=== PATIENT | female | born 1945 | race Caucasian/White ===

== ENCOUNTER 2020-03-10 20:48 | Emergency (ER) | payer MEDICARE, OTHER ==
[~2020-03-10] VITALS: Ht 160 cm; Wt 89.8 kg
--- NOTE | 2020-03-10 21:18 | NUR ---
TD GIVEN TO L-DELT. AKILAH, LOT [id number], EXP 02/26/22
[2020-03-10] MEDS ORDERED: TETANUS/DIPHTHERIA TOX ADULT 0.5 ML SYR ONE (21:19)
--- NOTE | 2020-03-10 21:21 | Emergency Department Note ---
History of Present Illnes History of Present Illness Chief Complaint: Laceration History of Present Illness This is a 74 year old female c cc laceration left index finger while s [facility] . Historian: Patient Onset (how long ago): hour(s) (1) Location: left index Quality: sharp Radiation: non-radiation Severity: moderate Onset quality: sudden Duration (how long): hour(s) (1) Timing of current episode: constant Progression: unchanged Chronicity: new Context: recent illness, recent surgery, recent immobilization, recent travel, trauma/injury, new medications, hx of DVT/PE, non-compliance w/ medications, other Relieving factors: none Exacerbating factors: none Associated symptoms: denies other symptoms Treatments prior to arrival: none Past Medical/Family History Physician Review I have reviewed the patient's past medical and family history. Any updates have been documented here. Past Medical History Past Medical History: Hypertension Past Surgical History: None Social History Smoking Cessation: Never Smoker Review of Systems Review of Systems Constitutional: no symptoms EENTM: no symptoms Cardiovascular: no symptoms Respiratory: no symptoms Gastrointestinal: no symptoms Genitourinary: no symptoms Musculoskeletal: as per HPI Neurological: no symptoms Psychological: no symptoms Endocrine: no symptoms Hematological/Lymphatic: no symptoms Review of other systems All other systems reviewed and negative. Physical Exam Related Data Vital signs reviewed: Yes Physical Exam CONSTITUTIONAL Constitutional: well-developed, well-nourished HENT EYES NECK PULMONARY CARDIOVASCULAR GASTROINTESTINAL GENITOURINARY SKIN Skin: other (laceraion left index) MUSCULOSKELETAL NEUROLOGICAL PSYCHOLOGICAL Procedures Laceration Laceration: Laceration 1 Site: hand Side: left Size (cm): 1 Description: linear Depth: simple, single layer Skin layer closed with: other (adhesive) Critical Care Time Subsequent provider I assumed direction of critical care for this patient from another provider of my specialty. Assessment & Plan Assessment & Plan Final Impression: (1) Laceration of left index finger (2) Acute pain due to trauma Assessment & Plan keflex Depart Disposition: HOME, SELF-CARE Medications in the ED Tetanus/ Diphtheria Toxoids 0.5 ml STK-MED ONCE .ROUTE ; Start 03/10/20 at 21:19; Stop 03/10/20 at 21:16; Status DC RASHAD VARGAS MD March 10, 2020 21:21
[2020-03-10] MEDS ORDERED: TETANUS/DIPHTHERIA TOX ADULT 0.5 ML SYR IM ONE (21:30)
[2020-03-10 21:37] VITALS: BP 159/80
== END 2020-03-10 21:37 | disposition home or self-care (01) ==
LOC: FSED 20:48
DX: S61.211A Laceration without foreign body of left index finger without damage to nail, initial encounter (principal); W26.8XXA Contact with other sharp object(s), not elsewhere classified, initial encounter; Y93.D2 Activity, sewing; Y92.008 Other place in unspecified non-institutional (private) residence as the place of occurrence of the external cause; I10 Essential (primary) hypertension
CPT/HCPCS: 90471; 90714; 99283